=== PATIENT | female | born 1995 | race Caucasian/White ===

== ENCOUNTER 2017-06-13 13:38 | Emergency (ER) | payer BC, OTHER ==
[~2017-06-13] VITALS: Ht 170.1 cm; Wt 56.7 kg
[~2017-06-13 13:38] MED LIST: CEPHALEXIN500 M1 PO; ELMIRON100 MG PO; MACROBID100 M1 PO; MOTRIN800 MG PO; ZOLOFT50 MG PO
[2017-06-13 14:07] VITALS: BP 124/67
[2017-06-13] MEDS ORDERED: IBU800 MG PO (15:40)
[2017-06-13] MEDS ORDERED: CYCLOBENZAPRINE5 M3 PO (15:40)
== END 2017-06-13 18:52 | disposition home or self-care (01) ==
LOC: ED 13:38
DX: S49.92XA Unspecified injury of left shoulder and upper arm, initial encounter (principal); F17.200 Nicotine dependence, unspecified, uncomplicated; V86.69XA Passenger of other special all-terrain or other off-road motor vehicle injured in nontraffic accident, initial encounter; Y93.89 Activity, other specified; Y92.413 State road as the place of occurrence of the external cause; Y99.8 Other external cause status

== ENCOUNTER 2019-01-03 00:22 | Emergency (ER) | payer BC, OTHER ==
[~2019-01-03] VITALS: Ht 170.1 cm; Wt 59.0 kg
[~2019-01-03 00:22] MED LIST changes: +CYCLOBENZAPRINE5 M3 PO; +IBU800 MG PO
[2019-01-03 00:24] VITALS: BP 119/81
[2019-01-03 00:56] LABS: BILIRUBIN NEGATIVE (NEGATIVE); BLOOD TRACE-INTACT (NEGATIVE); CLARITY SL CLOUDY (CLEAR); COLOR YELLOW (YELLOW); GLUCOSE NEGATIVE (NEGATIVE); KETONE NEGATIVE (NEGATIVE); LEUKO ESTERASE 2+ (NEGATIVE); NITRITE NEGATIVE (NEGATIVE); SPECIFIC GRAVITY 1.015 (1.005-1.030)
[2019-01-03] MEDS ORDERED: MONISTAT 7 COM1 EACH V (02:14)
[2019-01-04 20:08] LABS: GONOCOCCUS BY NAA Negative (Negative)
== END 2019-01-03 02:51 | disposition home or self-care (01) ==
LOC: ED 00:22
PROVIDERS: Emergency Medicine
DX: B37.3 Candidiasis of vulva and vagina (principal)

== ENCOUNTER → 2019-01-30 | Outpatient (CLI) | payer BC ==
[~2019-01-30] MED LIST changes: +MONISTAT 7 COM1 EACH V
== END | disposition home or self-care (01) ==
LOC: US 13:00
DX: Z34.01 Encounter for supervision of normal first pregnancy, first trimester (principal); Z3A.01 Less than 8 weeks gestation of pregnancy

== ENCOUNTER 2020-05-17 19:30 | Emergency (ER) | payer BC, OTHER ==
[~2020-05-17] VITALS: Ht 170.1 cm; Wt 57.6 kg
[2020-05-17 19:38] VITALS: BP 112/79
[2020-05-17] MEDS ORDERED: CEPHALEXIN500 M1 PO (22:08)
== END 2020-05-17 22:44 | disposition home or self-care (01) ==
LOC: ED 19:30
DX: S80.02XA Contusion of left knee, initial encounter (principal); S80.01XA Contusion of right knee, initial encounter; S50.02XA Contusion of left elbow, initial encounter; X58.XXXA Exposure to other specified factors, initial encounter; Y93.89 Activity, other specified; Y92.89 Other specified places as the place of occurrence of the external cause; Y99.8 Other external cause status

== ENCOUNTER 2020-11-21 17:51 | Emergency (ER) | payer OTHER, BC ==
[~2020-11-21] VITALS: Ht 170.1 cm; Wt 61.2 kg
[2020-11-21 18:08] VITALS: BP 151/81
[2020-11-21 18:30] LABS: BASO % 0.6 % (0.0-1.0); EOS # 0.1 10*3/uL (0.0-0.4); EOS % 1.1 % (1.0-4.0); HEMATOCRIT 46.1 % (37.0-47.0); LYMPH # 1.3 10*3/uL (1.3-4.4); LYMPH % 18.8 % (27.0-41.0); MEAN CELL VOLUME 93.5 fl (81.0-99.0); MEAN CORPUSCULAR HGB CONC 32.1 g/dl (33.0-37.0); MEAN PLATELET VOLUME 10.4 fl (9.6-12.3); MONO # 0.3 10*3/uL (0.1-1.0); MONO % 4.8 % (3.0-9.0); NEUT # 5.3 10*3/uL (2.3-7.9); NEUT % 74.4 % (47.0-73.0); PLATELET COUNT AUTOMATED 219 10*3/uL (130-400); RED BLOOD COUNT 4.93 10*6/uL (4.10-5.10); RED CELL DISTRI WIDTH 12.6 % (0-14.5); WHITE BLOOD COUNT 7.1 10*3/uL (4.8-10.8)
[2020-11-21 18:51] LABS: ALBUMIN 4.4 gm/dl (3.1-4.5); ALKALINE PHOSPHATASE 70 U/L (45-117); BUN 10 mg/dl (7-24); CHLORIDE 107 mmol/L (98-107); CREATININE 0.78 mg/dL (0.55-1.02); SGOT/AST 10 IU/L (3-35); SGPT/ALT 24 U/L (12-78); SODIUM 137 mmol/L (136-145); TOTAL PROTEIN 8.4 gm/dL (6.4-8.2)
[2020-11-21 18:57] LABS: CPK 69 U/L (26-192)
[2020-11-21 18:59] LABS: BILIRUBIN Negative (Negative); BLOOD Negative (Negative); CLARITY Clear (Clear); COLOR Yellow (Yellow); GLUCOSE Negative (Negative); KETONE Negative (Negative); LEUKO ESTERASE Trace (Negative); NITRITE Negative (Negative); PH 6.5 (4.5-8.0); SPECIFIC GRAVITY 1.015 (1.001-1.030); UROBILINOGEN 0.2 E.U./dl (0.0-1.0)
[2020-11-21 19:05] LABS: ETHYL ALCOHOL < 3.0 mg/dl (<3)
[2020-11-21 19:06] LABS: TROPONIN I < 0.015 ng/ml (<0.045)
[2020-11-21 19:07] LABS: URINE AMPHETAMINES < 1000 (1000ng/ml); URINE BARBITURATES < 200 (200ng/ml); URINE BENZODIAZEPINES < 200 (200ng/ml); URINE CANNABINOIDS (THC) > 50 (50ng/ml); URINE COCAINE > 300 (300ng/ml); URINE METHADONE < 300 (300ng/ml); URINE OPIATES < 300 (300ng/ml); URINE PHENCYCLIDINE < 25 (25ng/ml)
[2020-11-21 19:13] LABS: BACTERIA 1+; WBC 16-20 wbc/hpf (0-5)
== END 2020-11-21 22:22 | disposition home or self-care (01) ==
LOC: ED 17:51
PROVIDERS: Emergency Medicine
DX: F32.9 Major depressive disorder, single episode, unspecified (principal); F41.9 Anxiety disorder, unspecified; F14.10 Cocaine abuse, uncomplicated; Z20.822 Contact with and (suspected) exposure to COVID-19; Z79.899 Other long term (current) drug therapy; Z79.2 Long term (current) use of antibiotics

== ENCOUNTER 2020-12-27 22:02 | Observation (INO) | payer OTHER ==
[~2020-12-27] VITALS: Ht 170.2 cm; Wt 66.2 kg
[2020-12-27 22:06] VITALS: BP 117/81
[2020-12-27 23:03] LABS: BASO % 0.3 % (0.0-1.0); EOS # 0.1 10*3/uL (0.0-0.4); EOS % 0.9 % (1.0-4.0); HEMATOCRIT 38.5 % (37.0-47.0); LYMPH # 1.6 10*3/uL (1.3-4.4); MEAN CELL VOLUME 92.5 fl (81.0-99.0); MEAN CORPUSCULAR HGB 30.8 pg (27.0-31.0); MEAN CORPUSCULAR HGB CONC 33.2 g/dl (33.0-37.0); MEAN PLATELET VOLUME 9.8 fl (9.6-12.3); MONO # 0.8 10*3/uL (0.1-1.0); MONO % 7.3 % (3.0-9.0); NEUT # 8.1 10*3/uL (2.3-7.9); NEUT % 76.1 % (47.0-73.0); PLATELET COUNT AUTOMATED 207 10*3/uL (130-400); RED BLOOD COUNT 4.16 10*6/uL (4.10-5.10); RED CELL DISTRI WIDTH 12.6 % (0-14.5); WHITE BLOOD COUNT 10.6 10*3/uL (4.8-10.8)
[2020-12-27 23:18] LABS: ALBUMIN 3.6 gm/dl (3.1-4.5); ALKALINE PHOSPHATASE 72 U/L (45-117); BUN 10 mg/dl (7-24); CHLORIDE 107 mmol/L (98-107); CREATININE 0.71 mg/dL (0.55-1.02); SGOT/AST 10 IU/L (3-35); SGPT/ALT 17 U/L (12-78); SODIUM 140 mmol/L (136-145); TOTAL PROTEIN 7.3 gm/dL (6.4-8.2)
[2020-12-28 03:00] VITALS: BP 132/69
[2020-12-28] MEDS ORDERED: REXULTI3 MG PO (03:18)
[2020-12-28] MEDS ORDERED: LAMICTAL100 MG PO (03:18)
[2020-12-28] MEDS ORDERED: CYMBALTA60 MG PO (03:18)
[2020-12-28 06:17] LABS: BASO % 0.2 % (0.0-1.0); EOS # 0.1 10*3/uL (0.0-0.4); EOS % 1.4 % (1.0-4.0); LYMPH # 1.5 10*3/uL (1.3-4.4); LYMPH % 15.4 % (27.0-41.0); MEAN CELL VOLUME 91.8 fl (81.0-99.0); MEAN CORPUSCULAR HGB 30.4 pg (27.0-31.0); MEAN CORPUSCULAR HGB CONC 33.1 g/dl (33.0-37.0); MEAN PLATELET VOLUME 10.6 fl (9.6-12.3); MONO # 0.8 10*3/uL (0.1-1.0); MONO % 8.8 % (3.0-9.0); PLATELET COUNT AUTOMATED 201 10*3/uL (130-400); RED BLOOD COUNT 3.92 10*6/uL (4.10-5.10); RED CELL DISTRI WIDTH 12.6 % (0-14.5); WHITE BLOOD COUNT 9.4 10*3/uL (4.8-10.8)
[2020-12-28 06:27] LABS: ALBUMIN 3.3 gm/dl (3.1-4.5); ALKALINE PHOSPHATASE 66 U/L (45-117); BUN 8 mg/dl (7-24); CHLORIDE 107 mmol/L (98-107); CREATININE 0.62 mg/dL (0.55-1.02); POTASSIUM 3.5 mmol/L (3.5-5.1); SGOT/AST 11 IU/L (3-35); SGPT/ALT 16 U/L (12-78); SODIUM 139 mmol/L (136-145); TOTAL PROTEIN 6.5 gm/dL (6.4-8.2)
[2020-12-28 08:00] VITALS: BP 108/63
[2020-12-28 12:00] VITALS: BP 107/77
[2020-12-28 16:00] VITALS: BP 98/58
[2020-12-28 20:00] VITALS: BP 117/58
[2020-12-29] VITALS: BP 120/56
[2020-12-29 08:00] VITALS: BP 107/62
[2020-12-29] MEDS ORDERED: CLINDAMYCIN HC300 MG PO (09:32)
[2020-12-29] MEDS ORDERED: HYDROCODONE-AC1 EAC1 PO (09:33)
== END 2020-12-29 13:00 | disposition home or self-care (01) ==
LOC: ED 22:02 → EDHOLD 12-28 02:49 → 4E 12-28 02:57
PROVIDERS: Emergency Medicine; Internal Medicine; ADMIT Emergency Medicine; ATTEND Emergency Medicine
DX: K04.7 Periapical abscess without sinus (principal); L03.211 Cellulitis of face; F32.9 Major depressive disorder, single episode, unspecified; E44.0 Moderate protein-calorie malnutrition; F17.210 Nicotine dependence, cigarettes, uncomplicated; Z20.822 Contact with and (suspected) exposure to COVID-19

== ENCOUNTER 2021-07-30 17:14 | Emergency (ER) | payer OTHER ==
[~2021-07-30] VITALS: Ht 170.1 cm; Wt 56.7 kg
[~2021-07-30 17:14] MED LIST changes: +CLINDAMYCIN HC300 MG PO; +CYMBALTA60 MG PO; +HYDROCODONE-AC1 EAC1 PO; +LAMICTAL100 MG PO; +REXULTI3 MG PO
[2021-07-30 17:27] VITALS: BP 128/97
[2021-07-30] MEDS ORDERED: COGENTIN0.5 MG PO (18:37)
== END 2021-07-30 18:53 | disposition home or self-care (01) ==
LOC: ED 17:14
DX: G24.09 Other drug induced dystonia (principal)

== ENCOUNTER 2021-11-17 20:30 | Emergency (ER) | payer OTHER ==
[~2021-11-17] VITALS: Ht 170.1 cm; Wt 61.2 kg
[~2021-11-17 20:30] MED LIST changes: +COGENTIN0.5 MG PO
[2021-11-17] MEDS ORDERED: LATU20TA PO (20:39)
[2021-11-17] MEDS ORDERED: PREDNISONE20 M1 PO (22:46)
[2021-11-18 00:17] VITALS: BP 106/73
== END 2021-11-18 00:21 | disposition home or self-care (01) ==
LOC: ED 20:30
DX: R06.02 Shortness of breath (principal); T50.995A Adverse effect of other drugs, medicaments and biological substances, initial encounter; F17.200 Nicotine dependence, unspecified, uncomplicated; Z79.899 Other long term (current) drug therapy; Y92.89 Other specified places as the place of occurrence of the external cause

== ENCOUNTER 2023-02-28 17:44 | Emergency (ER) | payer OTHER ==
[~2023-02-28] VITALS: Ht 170.1 cm; Wt 59.0 kg
[~2023-02-28 17:44] MED LIST changes: +LATU20TA PO; +PREDNISONE20 M1 PO
[2023-03-01 01:39] LABS: BILIRUBIN Negative (Negative); BLOOD 2+ (Negative); CLARITY Cloudy (Clear); COLOR Yellow (Yellow); GLUCOSE Negative (Negative); KETONE Negative (Negative); LEUKO ESTERASE 1+ (Negative); NITRITE Negative (Negative); SPECIFIC GRAVITY 1.015 (1.001-1.030)
[2023-03-01 01:45] LABS: URINE AMPHETAMINES Negative (1000ng/ml); URINE BARBITURATES Negative (200ng/ml); URINE BENZODIAZEPINES Negative (200ng/ml); URINE CANNABINOIDS (THC) Positive (50ng/ml); URINE COCAINE Positive (300ng/ml); URINE METHADONE Negative (300ng/ml); URINE OPIATES Negative (300ng/ml); URINE PHENCYCLIDINE Negative (25ng/ml)
[2023-03-01 02:07] LABS: BACTERIA 1+; EPITHELIAL CELLS 16-20
[2023-03-01 09:16] VITALS: BP 108/62
== END 2023-03-01 09:50 | disposition home or self-care (01) ==
LOC: ED 17:44
PROVIDERS: Internal Medicine
DX: F32.A Depression, unspecified (principal); F41.9 Anxiety disorder, unspecified; Z72.0 Tobacco use; Z79.899 Other long term (current) drug therapy

== ENCOUNTER 2023-06-17 21:47 | Emergency (ER) | payer OTHER ==
[~2023-06-17] VITALS: Ht 172.7 cm; Wt 62.6 kg
[2023-06-17 22:31] VITALS: BP 117/57
[2023-06-17] MEDS ORDERED: BUSPAR15 MG PO (22:35)
[2023-06-17] MEDS ORDERED: CLONAZEPAM0.5 M2 PO (22:35)
[2023-06-17] MEDS ORDERED: IBU800 M2 PO (22:35)
[2023-06-17] MEDS ORDERED: ATOMOXETINE HCL25 MG PO (22:38)
== END 2023-06-18 00:29 | disposition home or self-care (01) ==
LOC: ED 21:47
DX: S93.401A Sprain of unspecified ligament of right ankle, initial encounter (principal); F32.A Depression, unspecified; Z72.0 Tobacco use; W17.2XXA Fall into hole, initial encounter; Y93.89 Activity, other specified; Y92.89 Other specified places as the place of occurrence of the external cause; Y99.8 Other external cause status

== ENCOUNTER → 2023-07-20 | Outpatient (CLI) | payer OTHER ==
[~2023-07-20] MED LIST changes: +ATOMOXETINE HCL25 MG PO; +BUSPAR15 MG PO; +CLONAZEPAM0.5 M2 PO; +IBU800 M2 PO
== END | disposition home or self-care (01) ==
LOC: MRI 14:00
PROVIDERS: ATTEND Orthopaedic Surgery
DX: S93.691A Other sprain of right foot, initial encounter (principal); S90.01XA Contusion of right ankle, initial encounter; R60.9 Edema, unspecified; X58.XXXA Exposure to other specified factors, initial encounter; Y93.89 Activity, other specified; Y92.89 Other specified places as the place of occurrence of the external cause; Y99.8 Other external cause status

== ENCOUNTER 2023-07-31 11:39 | Emergency (ER) | payer OTHER ==
[~2023-07-31] VITALS: Ht 172.7 cm; Wt 64.4 kg
[2023-07-31 11:44] VITALS: BP 122/78
[2023-07-31] MEDS ORDERED: CLINDAMYCIN HC300 MG PO (12:14)
== END 2023-07-31 12:35 | disposition home or self-care (01) ==
LOC: ED 11:39
DX: L03.012 Cellulitis of left finger (principal); F32.A Depression, unspecified; F17.290 Nicotine dependence, other tobacco product, uncomplicated

== ENCOUNTER 2023-09-24 14:07 | Emergency (ER) | payer OTHER ==
[~2023-09-24] VITALS: Wt 59.0 kg
[2023-09-24 14:14] VITALS: BP 140/100
[2023-09-24 14:39] LABS: BASO % 0.3 % (0.0-1.0); EOS # 0.1 10*3/uL (0.0-0.4); EOS % 0.5 % (1.0-4.0); HEMATOCRIT 43.5 % (37.0-47.0); LYMPH # 1.7 10*3/uL (1.3-4.4); LYMPH % 13.5 % (27.0-41.0); MEAN CELL VOLUME 92.4 fl (81.0-99.0); MEAN CORPUSCULAR HGB 31.8 pg (27.0-31.0); MEAN CORPUSCULAR HGB CONC 34.5 g/dl (33.0-37.0); MEAN PLATELET VOLUME 10.1 fl (9.6-12.3); MONO # 0.6 10*3/uL (0.1-1.0); MONO % 4.6 % (3.0-9.0); NEUT # 10.3 10*3/uL (2.3-7.9); NEUT % 80.9 % (47.0-73.0); PLATELET COUNT AUTOMATED 315 10*3/uL (130-400); RED BLOOD COUNT 4.71 10*6/uL (4.10-5.10); RED CELL DISTRI WIDTH 12.4 % (0-14.5); WHITE BLOOD COUNT 12.8 10*3/uL (4.8-10.8)
[2023-09-24 15:04] LABS: ALKALINE PHOSPHATASE 71 U/L (46-116); BUN 7 mg/dl (9-23); CHLORIDE 104 mmol/L (98-107); ETHYL ALCOHOL < 3.0 mg/dl (<3); POTASSIUM 3.4 mmol/L (3.4-5.1); SGPT/ALT 13 U/L (5-49); TOTAL PROTEIN 8.1 gm/dL (6.0-8.0)
[2023-09-24 17:05] LABS: BILIRUBIN Negative (Negative); BLOOD Negative (Negative); CLARITY Cloudy (Clear); COLOR Yellow (Yellow); GLUCOSE Negative (Negative); KETONE Trace (Negative); LEUKO ESTERASE 2+ (Negative); NITRITE Positive (Negative); SPECIFIC GRAVITY 1.025 (1.001-1.030)
[2023-09-24 17:12] LABS: URINE AMPHETAMINES Negative (1000ng/ml); URINE BARBITURATES Negative (200ng/ml); URINE BENZODIAZEPINES Negative (200ng/ml); URINE CANNABINOIDS (THC) Positive (50ng/ml); URINE COCAINE Positive (300ng/ml); URINE METHADONE Negative (300ng/ml); URINE OPIATES Negative (300ng/ml); URINE PHENCYCLIDINE Negative (25ng/ml)
[2023-09-24 17:18] LABS: BACTERIA 3+; RBC 0-2 rbc/hpf (0-2); WBC 31-40 wbc/hpf (0-5)
[2023-09-24] MEDS ORDERED: CIPRO500 MG PO (17:29)
== END 2023-09-24 17:39 | disposition home or self-care (01) ==
LOC: ED 14:07
PROVIDERS: Emergency Medicine
DX: F32.A Depression, unspecified (principal); F14.10 Cocaine abuse, uncomplicated; N39.0 Urinary tract infection, site not specified; Z72.0 Tobacco use; Z79.899 Other long term (current) drug therapy

== ENCOUNTER 2023-09-24 18:56 | Emergency (ER) | payer OTHER ==
[~2023-09-24 18:56] MED LIST changes: +CIPRO500 MG PO
[2023-09-24 19:01] VITALS: BP 136/90
== END 2023-09-24 23:21 ==
LOC: ED 18:56
DX: F31.9 Bipolar disorder, unspecified (principal); N39.0 Urinary tract infection, site not specified; F43.21 Adjustment disorder with depressed mood; F14.90 Cocaine use, unspecified, uncomplicated; E05.90 Thyrotoxicosis, unspecified without thyrotoxic crisis or storm; Z91.199 Patient's noncompliance with other medical treatment and regimen due to unspecified reason; Z72.0 Tobacco use

== ENCOUNTER → 2024-03-29 | Outpatient (CLI) | payer OTHER | END | disposition home or self-care (01) | LOC: RAD 11:39 | PROVIDERS: ATTEND Specialist | DX: M54.50 Low back pain, unspecified (principal) ==